=== PATIENT | female | born 1985 | race Caucasian/White ===

== ENCOUNTER 2019-08-11 17:54 | Emergency (ER) | payer OTHER ==
[~2019-08-11] VITALS: Ht 165.1 cm; Wt 50.0 kg
[2019-08-11 17:56] VITALS: BP 110/70
--- NOTE | 2019-08-11 18:01 | NUR ---
DARLENE RN: PT SWALLOWED GLASS FROM HER BRACELET WHILE IN SENIOR CARE. VS STABLE. NO ACUTE DISTRESS NOTED. REPORT GIVEN TO JASMYN GOMEZ
--- NOTE | 2019-08-11 18:02 | NUR ---
FLOAT RN: PT DENIES SI, HI
--- NOTE | 2019-08-11 19:05 | NUR ---
RN received report and assumed patient care. Patient resting awaiting discharge paperwork.
--- NOTE | 2019-08-11 19:05 | NUR ---
REPORT TO JASMYN LIEBERMAN.
== END 2019-08-11 19:17 | disposition home or self-care (01) ==
LOC: ED 18:42
DX: T18.9XXA Foreign body of alimentary tract, part unspecified, initial encounter (principal); F17.200 Nicotine dependence, unspecified, uncomplicated; X58.XXXA Exposure to other specified factors, initial encounter; Y93.89 Activity, other specified; Y92.148 Other place in prison as the place of occurrence of the external cause; Y99.8 Other external cause status
CPT/HCPCS: 71045; 99283